=== PATIENT | female | born 1960 | race Caucasian/White ===

== ENCOUNTER → 2021-05-01 | Outpatient (CLI) | payer BC ==
[2021-05-01] VITALS (8 sets, daily range): BP systolic 104–118; BP diastolic 64–73; PULSE 58–69; TEMP 97.9
[~2021-05-01] VITALS: Ht 165.1 cm; Wt 76.3 kg
[~2021-05-01] MED LIST: CALCIUM 600MG+D1 TAB PO; MULTIPLE VITAMI1 TA5 PO; PROBIOTIC ACID1 EAC3 PO
== END ==
LOC: COL.RAD 09:12
DX: R53.83 Other fatigue (principal); R94.5 Abnormal results of liver function studies
CPT/HCPCS: 32108